=== PATIENT | male | born 1980 | race African-American/Black ===

== ENCOUNTER 2017-05-28 17:46 | Emergency (ER) | payer MEDICAID ==
[2017-05-28 18:34] LABS: BILIRUBIN,URINE NEGATIVE (NEGATIVE); UA w/ MICROSCOPIC CHARGE YES
[2017-05-28 18:50] LABS: WBC,URINE >25 /HPF (0-3)
[2017-05-28 18:51] LABS: UR CULTURE IF IND INDICATED
--- NOTE | 2017-05-28 19:13 | Ultrasound Preliminary Report ---
Exam: US Testicle w/Doppler IMPRESSION: 1. Acute right epididymitis 2. Small right hydrocele. [facility] SITE ID: [id number]
--- NOTE | 2017-05-28 19:15 | Ultrasound Report ---
EXAM: SCROTAL ULTRASOUND EXAM DATE: 05/28/2017 06:30 PM. CLINICAL HISTORY: Right testicle pain for 2 days. COMPARISON: None. TECHNIQUE: Real-time scanning was performed with static images obtained. Both color-flow and Doppler spectral analysis were utilized. FINDINGS: Right: Testis: 4.1 x 2.7 x 3 cm. Normal size and echotexture. No mass, calcification, or abnormal blood flow . Epididymis: 1 x 1 x 1 cm. Hypervascular and prominent. Hydrocele: Small Varicocele: None. Left: Testis: 4.5 x 1.8 x 2.7 cm. Normal size and echotexture. No mass, calcification, or abnormal blood fl ow. Epididymis: 1.1 x 0.8 x 0.8 cm. Normal size and echotexture. No mass or abnormal blood flow. Hydrocele: None. Varicocele: None. Right scrotal wall appears thicker than the left at the anterior aspects. IMPRESSION: 1. Acute right epididymitis 2. Small right hydrocele. [facility] Referring Provider Line: [phone] SITE ID: [id number]
[2017-05-28] MEDS ORDERED: AZITHROMYCIN 250 MG TABLET PO STA (19:16)
[2017-05-28] MEDS ORDERED: HYDROcod/ACETAM 5/325 MG TABLET PO STA ×2 (19:16→21:59)
[2017-05-28] MEDS ORDERED: cefTRIAXone 1 GM VIAL IM STA (19:16)
[2017-05-28] MEDS ORDERED: AZITHROMYCIN 250 MG TABLET PO ONE (19:27)
[2017-05-28] MEDS ORDERED: HYDROcod/ACETAM 5/325 MG TABLET ONE (19:28)
[2017-05-28] MEDS ORDERED: LIDOCAINE 1% 2 ML VIAL ONE (19:28)
[2017-05-28] MEDS ORDERED: cefTRIAXone 1 GM VIAL ONE (19:28)
[2017-05-28] MEDS: oxyCODONE/ACET 5/325 Prepack 4 PO STA ×2 (21:40→22:18)
[2017-05-28] MEDS ORDERED: oxyCODONE/ACET 5/325 Prepack 4 PO ONE (21:41)
--- NOTE | 2017-05-28 21:42 | ED Physician Documentation ---
History of Present Illness - Stated complaint Stated Complaint: MALE - Chief complaint Chief Complaint: Abd Pain - Additonal information Additional information: Patient is a 37-year-old male who presents with a complaint of urinary tract symptoms off and on for a couple weeks. [id number]-[id number] couple of days his right testicles become more painful and swollen and has had lower urinary symptoms as well as discharge present. Urethral discharge. He denies any fever or chills just right testicular pain that is worse with movement and better with rest. He denies having any genitourinary history in the past. Review of systems: For pertinent positive and negatives in the review of systems please see the history of present illness, otherwise all other systems have been reviewed and are negative. Dragon disclaimer: Parts of this medical record were created using voice recognition technology. Because of the inherent limitations of this system, occasional same sounding word substitutions do occur and persist despite proofreading. Please read the document for context. Review of Systems Constitutional: denies: Fever, Chills : reports: Dysuria, Frequency, Hesitancy, Unable to Void, Discharge PD PAST MEDICAL HISTORY - Past Medical History Past Medical History: No - Past Surgical History Past Surgical History: No - Present Medications Home Medications: Ambulatory Orders Medication Instructions Recorded Confirmed Ciprofloxacin HCl [Cipro] 500 mg PO BID #10 tablet 05/28/17 Doxycycline Hyclate [Vibramycin] 100 mg PO BID #14 capsule 05/28/17 oxyCODONE/ACET 5/325 [Percocet 5 1 each PO Q4-6H PRN #16 tablet 05/28/17 mg/325 mg] - Allergies Allergies/Adverse Reactions: Allergies Allergy/AdvReac Type Severity Reaction Status Date / Time No Known Drug Allergies Allergy Verified 05/28/17 17:59 - Social History Does the pt smoke?: Yes Smoking Status: Current every day smoker Does the pt drink ETOH?: Yes ETOH Use: Beer Does the pt have substance abuse?: No - Immunizations Immunizations are current?: No - POLST Patient has POLST: No PD ED PE NORMAL - Vitals Vital signs reviewed: Yes - General General: Alert and oriented X 3, No acute distress, Well developed/nourished - Male Male : Other (On examination he has urethral discharge. Penis and shaft are normal there is no significant localized lymphadenopathy. There is no ulceration seen. On examination the right testicle is about 1-1/2 times the size of the left 1. There is a hard palpable knot that is tender consistent with acute epididymitis. There is no palpable abscess or fluctuance noted.) Results - Vitals Vitals: Vital Signs - 24 hr 05/28/17 17:54 Temperature 37 C Heart Rate 90 Respiratory 18 Rate Blood Pressure 108/69 O2 Saturation 100 Oxygen O2 Source Room air - Labs Labs: Laboratory Tests 05/28/17 18:10 Urine Color DARK YELLOW Urine Clarity CLOUDY Urine pH 6.0 Ur Specific [place] 1.020 Urine Protein 100 H Urine Glucose (UA) NEGATIVE Urine Ketones 15 H Urine Occult Blood MODERATE H Urine Nitrite NEGATIVE Urine Bilirubin NEGATIVE Urine Urobilinogen 2 H Ur Leukocyte Esterase LARGE H Urine RBC 0-5 Urine WBC >25 H Urine WBC Clumps PRESENT Ur Epithelial Cells FEW Renal Tubular Ur Squamous Epith Cells NONE SEEN Urine Bacteria None Seen Urine Mucus Moderate Strands Ur Microscopic Review INDICATED Urine Culture Comments INDICATED PD MEDICAL DECISION MAKING - ED course Complexity details: reviewed old records, reviewed results, re-evaluated patient ED course: Patient clinically has evidence of an STD. His urine was sent for chlamydia and gonorrhea testing. He was given Rocephin and azithromycin where as well as pain medication. Ultrasound demonstrates a hydrocele and findings consistent with epididymitis which patient has clinically. He otherwise looks good the scrotum is normal there is no evidence of gangrene. Given the urethral discharge on examination I suspect he probably has an STD. This was discussed with the patient. His girlfriend is present and she will wait for the follow- up studies in the next couple days and confirm whether she needs treatment or not. The patient will be placed on additional outpatient Cipro, doxycycline and pain medication. We will have him follow-up with urology. Disposition: To home Clinical impression: 1. Epididymitis and young man suspect chlamydia or gonorrhea as infecting etiology. Patient treated for these etiologies with IV Rocephin, azithromycin and outpatient Cipro and doxy Departure - Departure Disposition: 01 Home, Self Care Clinical Impression: Epididymal cyst, Acute epididymitis Condition: Good Instructions: ED Epididymitis Follow-Up: Santiago Cai MD [Provider Admit Priv/Credential] - Prescriptions: Ciprofloxacin HCl [Cipro] 500 mg PO BID #10 tablet oxyCODONE/ACET 5/325 [Percocet 5 mg/325 mg] 1 each PO Q4-6H PRN #16 tablet PRN Reason: Pain Doxycycline Hyclate [Vibramycin] 100 mg PO BID #14 capsule
[2017-05-28 21:45] VITALS: BP 116/71
[2017-05-28] MEDS ORDERED: oxyCOD/ACETAMIN 5 MG/325 MG TABLET PO STA (22:10)
[2017-05-28] MEDS ORDERED: oxyCOD/ACETAMIN 5 MG/325 MG TABLET PO ONE (22:15)
== END 2017-05-28 22:20 | disposition home or self-care (01) ==
LOC: ED 17:46
DX: N45.1 Epididymitis (principal); N50.3 Cyst of epididymis; F17.200 Nicotine dependence, unspecified, uncomplicated
CPT/HCPCS: 76870; 81001; 87086; 87491; 87591; 93975; 96372; 99283; A9270; 81003

== ENCOUNTER 2017-08-06 17:02 | Emergency (ER) | payer MEDICAID ==
[2017-08-06 17:09] VITALS: BP 104/64
[2017-08-06] MEDS ORDERED: cefTRIAXone 250 MG VIAL IM STA (17:13)
[2017-08-06] MEDS ORDERED: AZITHROMYCIN 250 MG TABLET PO STA (17:13)
--- NOTE | 2017-08-06 17:15 | ED Physician Documentation ---
History of Present Illness - Stated complaint Stated Complaint: MALE - Chief complaint Chief Complaint: General - History obtained from History obtained from: Patient - History of Present Illness Timing: Other (He recently had epididymitis related to gonorrhea. He was treated, but his girlfriend who just got found out on routine screening that she had gonorrhea as well and he presents for retreatment because he has been having intercourse with her. He has no symptoms currently, his testicles do not hurt and are not swollen, he is not having any discharge.) Review of Systems Constitutional: reports: Reviewed and negative Cardiac: reports: Reviewed and negative Respiratory: reports: Reviewed and negative PD PAST MEDICAL HISTORY - Past Surgical History Past Surgical History: No - Present Medications Home Medications: Ambulatory Orders Medication Instructions Recorded Confirmed No Known Home Medications [No 08/06/17 08/06/17 Known Home Medications] - Allergies Allergies/Adverse Reactions: Allergies Allergy/AdvReac Type Severity Reaction Status Date / Time No Known Drug Allergies Allergy Verified 08/06/17 17:09 - Social History Does the pt smoke?: Yes Smoking Status: Current every day smoker Does the pt drink ETOH?: Yes Does the pt have substance abuse?: No - Immunizations Immunizations are current?: No - POLST Patient has POLST: No PD ED PE NORMAL - Vitals Vital signs reviewed: Yes - General General: Alert and oriented X 3, No acute distress - Abdomen Abdomen: Soft, Non tender - Neuro Neuro: Alert and oriented X 3, Normal speech - Psych Psych: Normal mood, Normal affect Results - Vitals Vitals: Vital Signs - 24 hr 08/06/17 17:04 Temperature 37.1 C Heart Rate 80 Respiratory 16 Rate Blood Pressure 104/64 O2 Saturation 97 Oxygen O2 Source Room air Departure - Departure Disposition: 01 Home, Self Care Clinical Impression: Exposure to STD Condition: Good Record reviewed to determine appropriate education?: Yes Instructions: ED STD Male Treated Comments: Call your doctor to arrange a follow-up appointment, make the next available appointment. In the interim, return anytime if worse or if new symptoms develop.
[2017-08-06] MEDS ORDERED: AZITHROMYCIN 250 MG TABLET PO ONE (17:22)
[2017-08-06] MEDS ORDERED: cefTRIAXone 250 MG VIAL ONE (17:23)
[2017-08-06] MEDS ORDERED: LIDOCAINE 1% 2 ML VIAL ONE (17:23)
== END 2017-08-06 17:46 | disposition home or self-care (01) ==
LOC: ED 17:02
DX: Z20.2 Contact with and (suspected) exposure to infections with a predominantly sexual mode of transmission (principal); F17.200 Nicotine dependence, unspecified, uncomplicated
CPT/HCPCS: 96372; 99283; A9270

== ENCOUNTER 2019-09-13 23:27 | Outpatient (CLI) | payer MEDICAID | END 2019-09-13 23:28 | disposition critical access hospital (66) | LOC: EMS 23:27 | PROVIDERS: ATTEND Surgery | DX: I46.9 Cardiac arrest, cause unspecified (principal) | CPT/HCPCS: A0425; A0433; A0999 ==

== ENCOUNTER 2019-09-13 23:40 | Emergency (ER) | payer MEDICAID ==
[2019-09-13] MEDS ORDERED: DOPamine 800 MG/500 ML 800 MG/500 ML BAG IV ONE (23:50)
[2019-09-13] MEDS ORDERED: DOPamine 800 MG/500 ML 800 MG/500 ML BAG IV STA (23:53)
--- NOTE | 2019-09-14 00:05 | ED Physician Documentation ---
PD HPI CPR - Stated complaint Stated Complaint: ROSC - Chief complaint Chief Complaint: Critical Care - History obtained from History obtained from: EMS - History of Present Illness Timing - onset: Enter time (2299), Today Timing - onset during: Other (excessive drug use) Preceding symptoms: Other (collapse) Recently seen: Not recently seen Witnessed: Arrest witnessed Fall: No fall Bystander CPR: No bystander CPR, Downtime before CPR (4-10) EMS findings: Unresponsive, Apneic, Pulseless, Asystole Treatment PURCHASING INTERN: CPR, Intubated, Epi Advanced directive: No advanced directive - Additional information Additional information: 39-year-old male allegedly was at home partying for the past 2 days with friends and in an apartment. He was witnessed by his girlfriend to collapse and foam at the mouth. They thought that the patient was faking it and they initially called the patient's mother and then called 911. Medics arrived within 4 minutes of cough and initiated CPR. They were able to get return of spontaneous circulation with a single dose of epinephrine and 6 minutes of CPR. The patient is unresponsive pupils are dilated and minimally reactive. He arrives to the emergency department with ET tube in place, a sinus rhythm and a blood pressure of [address] depression anterolateral. Review of Systems Unable to obtain: Intubated PD PAST MEDICAL HISTORY - Past Medical History : Other (epidydimitis) - Past Surgical History Past Surgical History: No - Present Medications Home Medications: Ambulatory Orders Medication Instructions Recorded Confirmed No Known Home Medications 08/06/17 08/06/17 - Allergies Allergies/Adverse Reactions: Allergies Allergy/AdvReac Type Severity Reaction Status Date / Time No Known Drug Allergies Allergy Verified 09/13/19 23:43 - Social History Does the pt smoke?: Yes Smoking Status: Current every day smoker Does the pt drink ETOH?: Yes Does the pt have substance abuse?: Yes Substance Use and Type: Cocaine/Crack - Immunizations Immunizations are current?: No - POLST Patient has POLST: No PD ED PE NORMAL - Vitals Vital signs reviewed: Yes (hypotensive and cold ) - General General: Well developed/nourished - HEENT HEENT: Atraumatic, Other (pupils are dilated and minimally reactive ) - Neck Neck: Supple, no meningeal sign, No bony TTP - Cardiac Cardiac: RRR, No murmur - Respiratory Respiratory: Other (breath sounds are greater on the right ) - Derm Derm: Normal color, Warm and dry, No rash - Extremities Extremities: No deformity, No edema - Neuro Neuro: Other (minimal reaction of puplis.) Eye Opening: None Motor: None Verbal: None GCS Score: 3 Results - Vitals Vitals: Vital Signs - 24 hr 09/13/19 09/13/19 09/13/19 23:43 23:50 23:55 Temperature 33.6 C L Heart Rate 79 74 73 Respiratory 18 15 14 Rate Blood Pressure 56/32 L 53/40 L 60/35 L O2 Saturation 98 94 92 09/14/19 09/14/19 09/14/19 00:02 00:10 00:25 Temperature Heart Rate 78 77 77 Respiratory 15 14 13 Rate Blood Pressure 68/43 L 75/44 L 87/45 L O2 Saturation 93 94 96 09/14/19 09/14/19 09/14/19 00:38 00:40 00:55 Temperature 31.9 C L 31.9 C L 31.8 C L Heart Rate 79 79 82 Respiratory 19 18 14 Rate Blood Pressure 100/50 L 104/52 L 108/58 L O2 Saturation 93 93 92 09/14/19 09/14/19 09/14/19 01:00 01:05 01:07 Temperature 31.7 C L 31.6 C L Heart Rate 83 82 80 Respiratory 23 29 H Rate Blood Pressure 108/58 L 106/50 L O2 Saturation 93 95 09/14/19 09/14/19 09/14/19 01:39 02:00 02:12 Temperature 31.5 C L 31.7 C L Heart Rate 72 69 70 Respiratory 23 25 H Rate Blood Pressure 121/58 L 118/58 L O2 Saturation 100 95 09/14/19 09/14/19 09/14/19 02:28 02:47 03:16 Temperature 31.8 C L 31.9 C L Heart Rate 69 70 66 Respiratory 26 H 21 18 Rate Blood Pressure 114/65 113/59 L 106/59 L O2 Saturation 100 100 100 09/14/19 09/14/19 09/14/19 03:32 03:45 04:05 Temperature 32.2 C L 32.4 C L Heart Rate 64 62 69 Respiratory 22 22 Rate Blood Pressure 124/65 124/65 O2 Saturation 100 100 Oxygen O2 Source Mechanical ventilator - EKG (time done) 5516 Rate: Rate (enter#) (75) Intervals: RBBB Ischemia: ST depression (anterolateral ST depression) Compare to prior EKG: Old EKG unavailable Computer interpretation: Agree with computer - Labs Labs: Laboratory Tests 09/13/19 09/13/19 09/13/19 23:55 23:55 23:55 WBC 9.3 RBC 4.62 L Hgb 12.0 L Hct 37.3 L MCV 80.7 MCH 26.0 L MCHC 32.2 RDW 15.5 H Plt Count 215 MPV 10.1 Neut # (Auto) 6.7 H Lymph # (Auto) 2.0 [place] # (Auto) 0.3 Eos # (Auto) 0.0 Baso # (Auto) 0.0 Absolute Nucleated RBC 0.00 Nucleated RBC % 0.0 Sodium 140 Potassium 5.8 H Chloride 102 Carbon Dioxide 15 L Anion Gap 23.0 H BUN 11 Creatinine 1.5 H Estimated GFR (MDRD) 63 L Glucose 67 L Lactic Acid Calcium 7.3 L Total Bilirubin 0.6 AST > 5200 H ALT > 5200 H Alkaline Phosphatase 84 Total Creatine Kinase 188 CK-MB (CK-2) 2.9 Troponin I High Sens B-Natriuretic Peptide Total Protein 6.4 L Albumin 3.2 Globulin 3.2 Albumin/Globulin Ratio 1.0 Lipase 24 Urine Color Urine Clarity Urine pH Ur Specific [place] Urine Protein Urine Glucose (UA) Urine Ketones Urine Occult Blood Urine Nitrite Urine Bilirubin Urine Urobilinogen Ur Leukocyte Esterase Urine RBC Urine WBC Ur Squamous Epith Cells Urine Bacteria Urine Mucus Urine Sperm Ur Microscopic Review Urine Culture Comments Urine Opiates Screen Ur Oxycodone Screen Urine Methadone Screen Ur Propoxyphene Screen Ur Barbiturates Screen Ur Tricyclics Screen Ur Phencyclidine Scrn Ur Amphetamine Screen U Methamphetamines Scrn U Benzodiazepines Scrn Urine Cocaine Screen U Cannabinoids Screen Ethyl Alcohol 100.4 09/13/19 09/13/19 09/13/19 23:55 23:55 23:55 WBC RBC Hgb Hct MCV MCH MCHC RDW Plt Count MPV Neut # (Auto) Lymph # (Auto) [place] # (Auto) Eos # (Auto) Baso # (Auto) Absolute Nucleated RBC Nucleated RBC % Sodium Potassium Chloride Carbon Dioxide Anion Gap BUN Creatinine Estimated GFR (MDRD) Glucose Lactic Acid > 10.0 H* Calcium Total Bilirubin AST ALT Alkaline Phosphatase Total Creatine Kinase CK-MB (CK-2) Troponin I High Sens 12.2 B-Natriuretic Peptide 13 Total Protein Albumin Globulin Albumin/Globulin Ratio Lipase Urine Color Urine Clarity Urine pH Ur Specific [place] Urine Protein Urine Glucose (UA) Urine Ketones Urine Occult Blood Urine Nitrite Urine Bilirubin Urine Urobilinogen Ur Leukocyte Esterase Urine RBC Urine WBC Ur Squamous Epith Cells Urine Bacteria Urine Mucus Urine Sperm Ur Microscopic Review Urine Culture Comments Urine Opiates Screen Ur Oxycodone Screen Urine Methadone Screen Ur Propoxyphene Screen Ur Barbiturates Screen Ur Tricyclics Screen Ur Phencyclidine Scrn Ur Amphetamine Screen U Methamphetamines Scrn U Benzodiazepines Scrn Urine Cocaine Screen U Cannabinoids Screen Ethyl Alcohol 09/14/19 00:10 WBC RBC Hgb Hct MCV MCH MCHC RDW Plt Count MPV Neut # (Auto) Lymph # (Auto) [place] # (Auto) Eos # (Auto) Baso # (Auto) Absolute Nucleated RBC Nucleated RBC % Sodium Potassium Chloride Carbon Dioxide Anion Gap BUN Creatinine Estimated GFR (MDRD) Glucose Lactic Acid Calcium Total Bilirubin AST ALT Alkaline Phosphatase Total Creatine Kinase CK-MB (CK-2) Troponin I High Sens B-Natriuretic Peptide Total Protein Albumin Globulin Albumin/Globulin Ratio Lipase Urine Color YELLOW Urine Clarity HAZY Urine pH 5.5 Ur Specific [place] >=1.030 H Urine Protein 30 H Urine Glucose (UA) NEGATIVE Urine Ketones NEGATIVE Urine Occult Blood TRACE-INTA Urine Nitrite NEGATIVE Urine Bilirubin NEGATIVE Urine Urobilinogen 0.2 (NORMAL) Ur Leukocyte Esterase NEGATIVE Urine RBC 0-5 Urine WBC 6-10 H Ur Squamous Epith Cells NONE SEEN Urine Bacteria Rare Urine Mucus Few Strands Urine Sperm PRESENT Ur Microscopic Review INDICATED Urine Culture Comments INDICATED Urine Opiates Screen NEGATIVE Ur Oxycodone Screen NEGATIVE Urine Methadone Screen NEGATIVE Ur Propoxyphene Screen NEGATIVE Ur Barbiturates Screen NEGATIVE Ur Tricyclics Screen NEGATIVE Ur Phencyclidine Scrn NEGATIVE Ur Amphetamine Screen NEGATIVE U Methamphetamines Scrn NEGATIVE U Benzodiazepines Scrn NEGATIVE Urine Cocaine Screen POSITIVE H U Cannabinoids Screen POSITIVE H Ethyl Alcohol - Rads (name of study) CT head Radiology: Prelim report reviewed (Impression: Diffuse loss of sifuentes-white matter differentiation, suggestive of diffuse axonal injury. No evidence of hemorrhage.), EMP read indepedently, See rad report Chest Radiology: Prelim report reviewed (Impression: Endotracheal tube terminating 1 cm above the christian. Low lung volumes. Gaseous distention of the stomach.), EMP read indepedently, See rad report chest Radiology: Prelim report reviewed (Impression: 1. Support devices as above. Consider slight central catheter retraction 2. mild bilateral opacities are improving.), EMP read indepedently, See rad report Procedures - Bedside sono Bedside sono by EMP: With use of bedside ultrasound the heart is imaged there is symmetric cardiac activity no specific wall motion abnormality is appreciated. PD MEDICAL DECISION MAKING - ED course Complexity details: reviewed old records, reviewed results, re-evaluated patient, considered differential, d/w family ED course: Previously well 39-year-old male with a cardiac arrest has had return of spontaneous circulation with 6 minutes of CPR and 1 mg of epinephrine given intravenously and he is intubated and brought to the emergency department. He arrives with mechanical ventilation being performed and a blood pressure of 66/35. He is not making any effort to breathe and his pupils are dilated and minimally reactive. From the history the most consistent scenario would be that the patient had a narcotic overdose. His blood work is consistent with a prolonged downtime his lactate is over 10. His CT scan shows poor differentiation between the sifuentes and white matter consistent with diffuse axonal injury. It appears his heart was relatively easy to restart and with this the suspicion is he had respiratory arrest followed by cardiac arrest. His initial rhythm was asystole indicating that the respiratory arrest was likely present for some time before CPR was started. His prognosis is poor. I discussed this with the patient's family and they are insistent that he be continued on life support. This does appear reasonable at this point. The patient eventually does make some effort to breathe. I initially consulted our hospitalist here and after consideration of are available resources was elected to send the patient to a facility capable of determination of brain and capable of continued life support. We consulted our friends at [facility] and I spoke to Dr. Fitzpatrick who recommended we place a art line and central line in place the patient on a cooling protocol. The patient arrived with a temperature of 33.4 and the cooling blanket was set at 33. CNR maurice De La Fuente was kind enough to come to the emergency department to place the central line and art line. Our drug screen here in the emergency department does not show fentanyl and the suspicion is that he took some faux Percocet that was not Percocet but fentanyl instead and this is what led to his respiratory arrest. The screen is positive for cocaine, canabis and alcohol. Currently in [place] there has been a recent similar case related to faux percocet containing fentanyl. The family notes a friend of the patient has had her recently of fentanyl overdose. - Critical Care Time(min): 90 Time Includes: Direct patient care, Review records, Reassess patient, Document care, Coordinate care, Medical consult, Family consult for tx dec, See progress note Data interpretation: Labs, Pulse ox, ABG, CXR Procedures included in critical care time: Ventilator mgmt Procedures excluded from critical care time: EKG Departure - Departure Disposition: 02 Transfer Acute Care Hosp Clinical Impression: Cardiac arrest, Respiratory arrest Condition: Critical
--- NOTE | 2019-09-14 00:11 | XRAY Report ---
Reason: tube placement Procedure Date: 09/14/2019 Accession Number: [id number] / [id number] Procedure: XR - Chest 1 View X-Ray CPT Code: 99840 Final Report FULL RESULT: EXAM: CHEST RADIOGRAPHY EXAM DATE: 09/14/2019 12:00 AM. CLINICAL HISTORY: Tube placement. COMPARISON: None. TECHNIQUE: 1 view. FINDINGS: Lungs/Pleura: Low lung volumes, producing crowding of the pulmonary vasculature. No definite focal infiltrate, effusion, or pneumothorax. Mediastinum: Within exam limitations, the cardiomediastinal contour is normal. Other: Endotracheal tube terminating approximately 1 cm above the christian. Gaseous distention of the stomach. IMPRESSION: Endotracheal tube terminating 1 cm above the christian. Low lung volumes. Gaseous distention of the stomach. [facility]
[2019-09-14 00:14] LABS: MUDS CUTOFF CONCENTRATIONS CUTOFF CONC BELOW:
[2019-09-14 00:18] LABS: BASOPHILS % (AUTO) 0.2 %; EOSINOPHILS % (AUTO) 0.1 %; LYMPHOCYTES % (AUTO) 20.9 %; MEAN CORPUSCULAR HGB CONC 32.2 g/dL (32.0-36.0); MEAN CORPUSCULAR VOLUME 80.7 fL (80.0-94.0); MEAN PLATELET VOLUME 10.1 fL (7.4-11.4); MONOCYTES # (AUTO) 0.3 10^3/uL (0.0-1.0); MONOCYTES % (AUTO) 3.4 %; NEUTROPHILS # (AUTO) 6.7 10^3/uL (1.5-6.6); NEUTROPHILS % (AUTO) 71.8 %; PLT - PLATELET COUNT 215 10^3/uL (130-450); RED BLOOD COUNT 4.62 10^6/uL (4.70-6.10); RED CELL DISTRIBUTION WIDTH 15.5 % (12.0-15.0); WHITE BLOOD COUNT 9.3 x10^3/uL (4.8-10.8)
[2019-09-14 00:18] LABS: BILIRUBIN,URINE NEGATIVE (NEGATIVE); GLUCOSE, URINE (UA) NEGATIVE (NEGATIVE); KETONES,URINE (UA) NEGATIVE (NEGATIVE); LEUKOCYTE ESTERASE, URINE NEGATIVE (NEGATIVE); NITRITE,URINE NEGATIVE (NEGATIVE); OCCULT BLOOD,URINE TRACE-INTA (NEGATIVE); PH,URINE 5.5 PH (5.0-7.5); PROTEIN,URINE 30 mg/dL (NEGATIVE); UROBILINOGEN,URINE 0.2 (NORMAL) E.U./dL (NORMAL)
[2019-09-14 00:19] LABS: CLARITY,URINE HAZY (CLEAR)
[2019-09-14 00:26] LABS: RBC,URINE 0-5 /HPF (0-5)
[2019-09-14 00:27] LABS: BACTERIA,URINE Rare /HPF (None Seen); MUCUS,URINE Few Strands; SPERM,URINE PRESENT; SQUAMOUS EPITHELIAL CELL,UR NONE SEEN (<= Few)
[2019-09-14] MEDS ORDERED: SODIUM CHLORIDE 0.9% 1,000 ML IV ONE (00:28)
[2019-09-14 00:30] LABS: AMPHETAMINE SCREEN,URINE NEGATIVE (NEGATIVE); BENZODIAZEPINES SCREEN, URINE NEGATIVE (NEGATIVE); COCAINE SCREEN URINE POSITIVE (NEGATIVE); METHADONE SCREEN, URINE NEGATIVE (NEGATIVE); METHAMPHETAMINES SCREEN, URINE NEGATIVE (NEGATIVE); OPIATE SCREEN, URINE NEGATIVE (NEGATIVE); OXYCODONE SCREEN, URINE NEGATIVE (NEGATIVE); PROPOXYPHENE SCREEN, URINE NEGATIVE (NEGATIVE); TRICYCLIC ANTIDEPRESSANT,URINE NEGATIVE (NEGATIVE)
[2019-09-14 00:43] LABS: ALBUMIN 3.2 g/dL (3.2-5.5); ALKALINE PHOSPHATASE 84 IU/L (42-121); AST ASPARTATE AMINOTRANSFERASE > 5200 IU/L (10-42); BILIRUBIN,TOTAL 0.6 mg/dL (0.2-1.0); BUN - BLOOD UREA NITROGEN 11 mg/dL (6-20); CALCIUM 7.3 mg/dL (8.5-10.3); CARBON DIOXIDE - CO2 15 mmol/L (21-32); CHLORIDE 102 mmol/L (101-111); CK- CREATINE KINASE 188 IU/L (22-269); CREATININE 1.5 mg/dL (0.6-1.2); GFR - MDRD 63 (>89); GLUCOSE 67 mg/dL (70-100); LIPASE 24 U/L (22-51); SODIUM 140 mmol/L (135-145); TOTAL PROTEIN 6.4 g/dL (6.7-8.2)
[2019-09-14] MEDS ORDERED: MIDAZOLAM 2 MG/2 ML VIAL IVP STA ×2 (00:52→03:57)
--- NOTE | 2019-09-14 00:53 | CT Report ---
Reason: CPR with ROSC Procedure Date: 09/14/2019 Accession Number: [id number] / [id number] Procedure: CT - HEAD WO CPT Code: Final Report FULL RESULT: EXAM: CT HEAD EXAM DATE: 09/14/2019 12:26 AM. CLINICAL HISTORY: CPR with ROSC. COMPARISON: None. TECHNIQUE: Multiaxial CT images were obtained from the foramen magnum to the vertex. Reformats: Sagittal and coronal. IV contrast: None. In accordance with CT protocol optimization, one or more of the following dose reduction techniques were utilized for this exam: automated exposure control, adjustment of mA and/or KV based on patient size, or use of iterative reconstructive technique. FINDINGS: Parenchyma: Diffuse loss of sifuentes-white matter differentiation, suggestive of diffuse anoxia. No evident hemorrhage or mass-effect. Extraaxial Spaces: Effacement of sulci. No subdural or epidural collections identified. Ventricles: Normal in size and position. Sinuses and Orbits: Imaged paranasal sinuses, orbits, and mastoids show no significant abnormality. Bones: No evidence of fracture or calvarial defect. Other: None. IMPRESSION: Diffuse loss of sifuentes-white matter differentiation, suggestive of diffuse anoxic injury. No evidence of hemorrhage. [facility]
[2019-09-14 01:04] LABS: ALT ALANINE AMINOTRANSFERASE > 5200 IU/L (10-60)
--- NOTE | 2019-09-14 03:30 | XRAY Report ---
Reason: central line placement Procedure Date: 09/14/2019 Accession Number: [id number] / [id number] Procedure: XR - Chest for Line Placement CPT Code: Final Report FULL RESULT: EXAM: CHEST RADIOGRAPHY EXAM DATE: 09/14/2019 03:24 AM. CLINICAL HISTORY: Central line placement. COMPARISON: CHEST 1 VIEW 09/13/2019 11:41 PM. TECHNIQUE: 1 view. FINDINGS: Support devices: Endotracheal tube tip about 5 cm above the christian. Right central catheter tip extends about 2 cm into the right atrium. Lungs/Pleura: Mild bilateral opacities are improving. No gross pneumothorax. No increasing effusion. Mediastinum: Stable heart size. No mediastinal shift. Other: None. IMPRESSION: 1. Support devices as above. Consider slight central catheter retraction. 2. Mild bilateral opacities are improving. [facility]
--- NOTE | 2019-09-14 03:34 | ANESTHESIA PROCEDURE NOTE ---
Anesth Central Line Template - Central Line Central Line Preparation: Unable to obtain consent, Time out completed, Ultra sound used, Sterile prep and drape Central line location: Right IJ Central line type: Triple lumen Central line catheter tip site resides: Awaiting radiology report Central line aftercare: Chlorhexidine disc placed, Secured, Placement confirmed, No complications, Bundle checklist complete, Pt tolerated well (Patient comatose, intubated, no complications. Prelim CXR indicated the line may be too deep, waiting for [facility])
--- NOTE | 2019-09-14 04:03 | ANESTHESIA PROCEDURE NOTE ---
Anesth Central Line Template - Central Line Central line aftercare: Other (Central line retracted 3 cm, resutured, CXR in dicates its in the distal SVC)
--- NOTE | 2019-09-14 04:06 | CONSULTATION NOTE ---
Consultation Report: Called to ER to place arterial line and central line on a patient that required CPR in the field due to a suspected overdose. Attempted arterial lines on both radial arteries aftger Rodolfo test. sterile procedure was maintained at all times with mask, gloves, drape. Using ultrasound I was able to harper the radial arteries but unable to thread the cath times 3. Patient is on dopamine which may have influenced my failure to get the arterial cath in. Both sites were held with pressure for 5 minutes and pressure dressings applied.
--- NOTE | 2019-09-14 04:22 | XRAY Report ---
Reason: central line placement Procedure Date: 09/14/2019 Accession Number: [id number] / [id number] Procedure: XR - Chest for Line Placement CPT Code: Final Report FULL RESULT: EXAM: CHEST RADIOGRAPHY EXAM DATE: 09/14/2019 03:48 AM. CLINICAL HISTORY: Central line placement. COMPARISON: CHEST FOR LINE PLACEMENT 09/14/2019 3:06 AM. TECHNIQUE: 1 view. FINDINGS: Lungs/Pleura: No focal opacities evident. No pleural effusion. No pneumothorax. Mediastinum: Within exam limitations, the cardiomediastinal contour is normal. Other: Right jugular central venous catheter terminating in the distal superior vena cava. Endotracheal tube terminating 2 cm above the christian. IMPRESSION: Right jugular central venous catheter terminating in the distal superior vena cava. Endotracheal tube terminating 2 cm above the christian. [facility]IA
[2019-09-14 05:04] VITALS: BP 104/41
== END 2019-09-14 05:00 | disposition short-term general hospital (02) ==
LOC: EDUNIT# → ED 23:40
DX: I46.9 Cardiac arrest, cause unspecified (principal); R40.20 Unspecified coma; I45.10 Unspecified right bundle-branch block; F11.90 Opioid use, unspecified, uncomplicated; F14.90 Cocaine use, unspecified, uncomplicated; F12.90 Cannabis use, unspecified, uncomplicated; F17.200 Nicotine dependence, unspecified, uncomplicated
CPT/HCPCS: 36415; 36556; 51702; 70450; 71045; 80053; 80306; 80320; 81001; 81003; 82550; 82553; 83605; 83690; 83880; 84484; 85025; 87086; 93005; 94770; 96361; 96374; 96375; 96376; 99291; 99292